=== PATIENT | male | born 1950 | race Caucasian/White ===

== ENCOUNTER 2020-06-10 16:40 | Emergency (ER) | payer MEDICARE | END 2020-06-10 21:25 | disposition home or self-care (01) | LOC: ER1 16:40 | DX: R33.0 Drug induced retention of urine (principal); T50.905A Adverse effect of unspecified drugs, medicaments and biological substances, initial encounter; R10.30 Lower abdominal pain, unspecified; Z98.890 Other specified postprocedural states | CPT/HCPCS: 51702; 81001; 87086; 99283 ==